=== PATIENT | male | born 1995 | race Two or more races ===

== ENCOUNTER 2019-10-18 17:14 | Emergency (ER) | payer OTHER ==
[2019-10-18] MEDS ORDERED: TETANUS-DIPTH-ACEL PERTUSSIS 0.5ML SYR Tdap IM ONE (19:15)
[2019-10-18] MEDS ORDERED: LIDOCAINE 1% HCL (LOCAL ANESTH.) INJ 20ML MDV ONE (20:11)
[2019-10-18] MEDS ORDERED: LIDOCAINE 1% HCL (LOCAL ANESTH.) INJ 20ML MDV IJ ONE (20:15)
[2019-10-18 20:18] VITALS: BP 102/64
== END 2019-10-18 20:25 | disposition home or self-care (01) ==
LOC: ER 17:14
DX: S61.213A Laceration without foreign body of left middle finger without damage to nail, initial encounter (principal); X58.XXXA Exposure to other specified factors, initial encounter; Y93.89 Activity, other specified; Y92.89 Other specified places as the place of occurrence of the external cause; Y99.8 Other external cause status
CPT/HCPCS: 12002; 73130; 90471; 90715; 99283; J2001

== ENCOUNTER 2022-11-17 17:25 | Emergency (ER) | payer SELFPAY ==
[~2022-11-17] VITALS: Ht 175.3 cm; Wt 59.0 kg
[2022-11-17] MEDS ORDERED: ONDANSETRON ODT 4 MG TAB PO ONE (21:00)
[2022-11-17] MEDS ORDERED: HYDROcodone-ACET 10/325MG TAB PO ONE (21:00)
[2022-11-17 22:00] VITALS: BP 128/67
== END 2022-11-17 22:34 | disposition home or self-care (01) ==
LOC: ER 17:25
DX: S82.435A Nondisplaced oblique fracture of shaft of left fibula, initial encounter for closed fracture (principal); S90.02XA Contusion of left ankle, initial encounter; M25.472 Effusion, left ankle; V29.99XA Rider (driver) (passenger) of other motorcycle injured in unspecified traffic accident, initial encounter; Y93.89 Activity, other specified; Y92.89 Other specified places as the place of occurrence of the external cause; Y99.8 Other external cause status
CPT/HCPCS: 29515; 73610; 99283; Q0162